=== PATIENT | female | born 1945 | race Caucasian/White ===

== ENCOUNTER → 2017-03-02 | Outpatient (CLI) | payer MEDICARE, OTHER ==
[~2017-03-02] MED LIST: BACI1CAP4 PO; BUDE180A IH; CALC-912 PO; CTLP20T PO; DOCU100T2 PO; GLUC1CAP37 PO; LANS15CA16 PO; LEVO50TA6 PO; MULT-351 PO; NF-XOP-HFA INH; POLY17PO6 PO; RANI150T15 PO
--- NOTE | 2017-03-02 19:26 | Diagnostic Imaging Report ---
INDICATION: Digital screening mammography bilateral with CAD The current study was also evaluated with a Computer Aided Detection (CAD) system. Comparison is made to previous studies of 02/05/2016 and 01/24/2015. There is mild breast parenchymal density. There is no evidence of new dominant mass or suspicious calcification. Overall, there has been no adverse change. IMPRESSION: Negative mammograms. Continued physical examination and annual mammographic followup are recommended. ACR BI-RADS Category 1: Negative. Result letter will be mailed to the patient. Note: At least 10% of breast cancer is not imaged by mammography. Dictated by: Dictated on workstation # [id number]
== END ==
LOC: RAD 13:21
PROVIDERS: ATTEND Family Medicine
DX: Z12.31 Encounter for screening mammogram for malignant neoplasm of breast (principal)